=== PATIENT | female | born 1950 | race Two or more races ===

== ENCOUNTER 2024-10-29 14:51 | Emergency (ER) | payer MEDICARE, OTHER ==
[~2024-10-29] VITALS: Ht 157.5 cm; Wt 65.9 kg
[2024-10-29] MEDS ORDERED: LIDOCAINE 5% (PATCH) 1 EA PATCH TP ONE (16:22)
[2024-10-29] MEDS ORDERED: IBUPROFEN 600 MG TABLET ONE (16:22)
[2024-10-29] MEDS ORDERED: LIDO30AD10 TP (16:30)
[2024-10-29] MEDS: IBUPROFEN 600 MG TABLET PO ONE (16:30)
[2024-10-29] MEDS: LIDOCAINE 5% (PATCH) 1 EA PATCH TP SCH (16:30)
[2024-10-29] MEDS ORDERED: IBUP-1490 PO (16:30)
[2024-10-29 17:02] VITALS: BP 114/88; TEMP 98.1; O2SAT 97
== END 2024-10-29 17:03 | disposition home or self-care (01) ==
LOC: ER 15:06
DX: S20.212A Contusion of left front wall of thorax, initial encounter (principal); R06.02 Shortness of breath; W18.39XA Other fall on same level, initial encounter; Y93.89 Activity, other specified; Y92.89 Other specified places as the place of occurrence of the external cause; Y99.8 Other external cause status
CPT/HCPCS: 71100-TC